=== PATIENT | female | born 1955 | race Caucasian/White ===

== ENCOUNTER 2018-04-12 22:40 | Emergency (ER) | payer OTHER ==
[2018-04-12] MEDS ORDERED: Metoclopramide IV* 5 MG/ML 2 ML VIAL IV ONE (23:40)
[2018-04-12] MEDS ORDERED: NS 0.9% 1000 ML* 1,000 ML IV ONE (23:40)
--- NOTE | 2018-04-13 00:03 | ED ---
Abdominal Pain/Female - HPI Summary HPI Summary: This is scrrufino Becker documenting for attending physician Inna Nguyen M.D. Pt is a 62 y/o female who presents to [facility] c/o abdominal pain for 1.5 weeks. She describes the sensation as bloated, and states the pain is diffuse but worse in her upper abdomen. The pain is non-radiating, 7/10 in severity, and is worse at night. Pt also c/o nausea, but denies any vomiting or diarrhea. Her last BM was today. Pt denies any PMHx of IBS or abdominal surgery. PMHx GERD and Alport syndrome. - History of Current Complaint Chief Complaint: EDAbdPain Stated Complaint: ABD PAIN Time Seen by Provider: 04/12/18 23:35 Hx Obtained From: Patient Onset/Duration: Gradual Onset, Lasting Weeks - 1.5, Still Present Timing: Constant Severity Currently: Moderate Pain Intensity: 7 Pain Scale Used: 0-10 Numeric Location: Diffuse Radiates: No Character: Other: - Bloated Aggravating Factor(s): Nothing Alleviating Factor(s): Nothing Associated Signs and Symptoms: Positive: Nausea. Negative: Vomiting, Diarrhea Allergies/Adverse Reactions: Allergies Allergy/AdvReac Type Severity Reaction Status Date / Time No Known Allergies Allergy Verified 04/12/18 22:45 PMH/Surg Hx/FS Hx/Imm Hx Endocrine/Hematology History: Denies: Hx Diabetes Cardiovascular History: Reports: Hx Angina, Hx Hypercholesterolemia, Hx Hypertension - HCTZ 25MG, RAMIPRIL 5MG DAILY Respiratory History: Denies: Hx Asthma, Hx Chronic Obstructive Pulmonary Disease (COPD) History: Reports: Hx Renal Disease - GLOMERULAR NEPRITIS HX, Other Problems/Disorders - familial glomerulonephritis Sensory History: Reports: Hx Contacts or Glasses Opthamlomology History: Reports: Hx Contacts or Glasses Psychiatric History: Denies: Hx Substance Abuse - Cancer History Cancer Type, Location and Year: tongue CA - Surgical History Surgery Procedure, Year, and Place: tongue CA with removal of lesion Infectious Disease History: No Infectious Disease History: Denies: Traveled Outside the [place] in Last 30 Days - Family History Known Family History: Positive: Cardiac Disease - [place], Hypertension, Renal Disease - glomerulonephritis - Social History Alcohol Use: Rare Substance Use Type: Reports: None Hx Tobacco Use: No Smoking Status (MU): Never Smoked Tobacco Review of Systems Negative: Fever Positive: Abdominal Pain, Nausea. Negative: Vomiting, Diarrhea All Other Systems Reviewed And Are Negative: Yes Physical Exam - Summary Physical Exam Summary: VITAL SIGNS: Reviewed. GENERAL: Patient is a well-developed and nourished FEMALE who is lying comfortable in the stretcher. Patient is not in any acute respiratory distress. HEAD AND FACE: No signs of trauma. No ecchymosis, hematomas or skull depressions. No sinus tenderness. EYES: PERRLA, EOMI x 2, No injected conjunctiva, no nystagmus. EARS: Hearing grossly intact. Ear canals and tympanic membranes are within normal limits. MOUTH: Oropharynx within normal limits. NECK: Supple, trachea is midline, no adenopathy, no JVD, no carotid bruit, no c- spine tenderness, neck with full ROM. CHEST: Symmetric, no tenderness at palpation LUNGS: Clear to auscultation bilaterally. No wheezing or crackles. CVS: Regular rate and rhythm, S1 and S2 present, no murmurs or gallops appreciated. ABDOMEN: Soft. No rebound no guarding, and no masses palpated. Bowel sounds are hyperactive. Distended. Bilateral LQ tenderness. EXTREMITIES: FROM in all major joints, no edema, no cyanosis or clubbing. NEURO: Alert and oriented x 3. No acute neurological deficits. Speech is normal and follows commands. SKIN: Dry and warm Triage Information Reviewed: Yes Vital Signs On Initial Exam: Initial Vitals Temp Pulse Resp BP Pulse Ox 98.0 F 64 16 166/73 100 04/12/18 22:42 04/12/18 22:42 04/12/18 22:42 04/12/18 22:42 04/12/18 22:42 Vital Signs Reviewed: Yes Diagnostics - Vital Signs Vital Signs Temp Pulse Resp BP Pulse Ox 04/12/18 22:42 98.0 F 64 16 166/73 100 - Laboratory Result Diagrams: 04/12/18 23:54 04/12/18 23:54 Lab Statement: Any lab studies that have been ordered have been reviewed, and results considered in the medical decision making process. - CT CT A/P CT Interpretation: Positive (See Comments) - Cholelithiasis with multiple gallstones and probably sludge. Otherwise negative CT abdomen/pelvis. ED physician reviewed radiology report. CT Interpretation Completed By: Radiologist Abdominal Pain Fem Course/Dx - Course Course Of Treatment: Pt is a 62 y/o female who presents to [facility] c/o abdominal pain for 1.5 weeks. She describes the sensation as bloated, and diffuse but worse in her upper abdomen, non-radiating, 7/10 in severity, and is worse at night. Pt also c/o nausea, but denies any vomiting or diarrhea. Her last BM was today. A physical exam revealed Bowel sounds are hyperactive. Distended. Bilateral LQ tenderness. A CT A/P revealed Cholelithiasis with multiple gallstones and probably sludge. Final dx is cholelithiasis. Pt will be discharged home, and is to follow up with surgery. Pt is agreeable with this plan. - Diagnoses Provider Diagnoses: Cholelithiasis Discharge - Sign-Out/Discharge Documenting (check all that apply): Patient Departure - Discharge - Discharge Plan Condition: Stable Disposition: HOME Patient Education Materials: Gallstones (ED) Referrals: Darius Mace MD [Medical Doctor] - (1-2 days) Additional Instructions: Follow up with surgery. RETURN TO THE EMERGENCY DEPARTMENT FOR CHANGING OR WORSENING SYMPTOMS
[2018-04-13 00:11] LABS: ABS Basophils 0 10^3/ul (0-0.2); ABS Eosinophils 0.1 10^3/ul (0-0.6); ABS Lymphocytes 1.9 10^3/ul (1.0-4.8); ABS Monocytes 0.4 10^3/ul (0-0.8); ABS Neutrophils 4.1 10^3/ul (1.5-7.7); ABS Nucleated RBC 0 10^3/ul; Eosinophil % 1.1 % (0-6); Hematocrit 33 % (35-47); Hemoglobin 11.1 g/dl (12.0-16.0); Lymphocyte % 29.6 % (25-47); Mean Corpuscular HGB Conc 33 g/dl (31-36); Mean Corpuscular Hemoglobin 31 pg (27-31); Mean Corpuscular Volume 94 fL (80-97); Mean Platelet Volume 7.4 um3 (7.4-10.4); Nucleated Red Blood Cells % 0; Platelet Count 235 10^3/ul (150-450); Red Blood Count 3.57 10^6/ul (4.00-5.40); Red Cell Distribution Width 13 % (10.5-15); White Blood Count 6.5 10^3/ul (3.5-10.8)
[2018-04-13 00:30] LABS: EGFR Non-African American 44.5 (>60)
[2018-04-13] MEDS ORDERED: Iodixanol* (CONTRAST) 320 MG/ML 100 ML SDV IV ONE (00:38)
[2018-04-13 03:33] VITALS: BP 138/84
--- NOTE | 2018-04-13 08:04 | RAD ---
CLINICAL HISTORY: Abdominal pain, bloating, swelling COMPARISON: September 09, 2006 TECHNIQUE: Multiple contiguous axial CT scans were obtained of the abdomen and pelvis after the administration of intravenous contrast. Coronal and sagittal multiplanar reformations are submitted for review. Oral contrast was not administered. Delayed images were obtained through the abdomen. FINDINGS: LUNG BASES: The lung bases are clear. LIVER: There is a small low-attenuation lesion of the right lobe of liver that can be identified on the 2005 examination in retrospect and is stable, most consistent with a small cyst versus hemangioma. BILE DUCTS: There is no intrahepatic or extrahepatic biliary dilatation. GALLBLADDER: Multiple gallstones are noted. There is no pericholecystic inflammatory change. PANCREAS: The pancreas is normal, without mass or ductal dilatation. SPLEEN: Normal in size and appearance. UPPER GI TRACT: Evaluation of the gastrointestinal tract is limited by incomplete gastric distention. The upper GI tract is unremarkable. SMALL BOWEL AND MESENTERY: The small bowel is normal in contour, course, and caliber. There is no obstruction or dilatation. COLON: The colon is normal in contour, course, caliber. There is no pericolonic inflammatory change. There is large amount of stool within the proximal colon. The appendix is not clearly visualized. There is no inflammatory change within the right upper quadrant. ADRENALS: Normal bilaterally. KIDNEYS: The kidneys are normal in shape, size, contour, and axis. There is no hydronephrosis or nephrolithiasis. BLADDER: The bladder is smooth in contour. PELVIC ORGANS: The uterus and adnexa are grossly normal for technique. AORTA: The aorta is normal. IVC: Unremarkable LYMPH NODES: There is no lymphadenopathy by size criteria. ABDOMINAL WALL: There is no evidence for abdominal wall hernia. BONES AND SOFT TISSUES: Degenerative changes are noted. There is grade 1 anterolisthesis of L4 on L5, and to lesser extent at L5-S1. OTHER: None IMPRESSION: CHOLELITHIASIS. R0
== END 2018-04-13 03:37 | disposition home or self-care (01) ==
LOC: ED 22:40
DX: K80.20 Calculus of gallbladder without cholecystitis without obstruction (principal); R11.0 Nausea; I20.9 Angina pectoris, unspecified; I10 Essential (primary) hypertension; Z85.810 Personal history of malignant neoplasm of tongue; Z82.49 Family history of ischemic heart disease and other diseases of the circulatory system; Z84.1 Family history of disorders of kidney and ureter
CPT/HCPCS: 36415; 74177; 80053; 82150; 83690; 85025; 86140; 96361; 96374; 99283; J2765

== ENCOUNTER 2018-04-28 13:44 | Day surgery (SDC) | payer OTHER ==
--- NOTE | 2018-04-26 12:41 | HP ---
CC: Dr. Jose Javier * ADMISSION HISTORY AND PHYSICAL: DATE OF ADMISSION: 04/28/18 ATTENDING SURGEON: Dr. Mono Huang.* (DICTATED BY EMELINA WAYNE) CHIEF COMPLAINT: Symptomatic cholelithiasis. HISTORY OF PRESENT ILLNESS: This is a 62-year-old female who a little over a month ago began to experience mid epigastric abdominal pain associated with significant bloating and nausea. She had intermittent symptoms about a week prior, then finally presented to the ED on 03/13/18, at which time she underwent workup. She denies fever or chills, association with specific foods or eating, or dark urine. There is no family history of gallbladder disease that she is aware of. Pain would occur in the epigastric region and will eventually spread to the bilateral upper abdomen. At the time of her evaluation , white blood cell count was normal. Hemoglobin was slightly low at 11.1, but consistent with prior CBCs. Liver function tests, amylase and lipase were all normal. BUN and creatinine were mildly elevated, again consistent with previous. CT of the abdomen with IV contrast only did confirm the presence of gallstones, but without pericholecystic inflammatory changes (see full report). The patient was seen in the office by Dr. Huang on 04/15/18. He has reviewed her workup including a subsequent ultrasound of right upper quadrant showing multiple gallstones, but without pericholecystic fluid, gallbladder wall thickening, or ductal dilatation. His impression was that of symptomatic cholelithiasis. He has reviewed with her the indications for surgery, the risks , benefits, and alternatives and she would like to proceed as scheduled with laparoscopic cholecystectomy. 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 PAST SURGICAL HISTORY: Resection of squamous cell cancer of the right tongue ( patient did not require any additional therapy and with no evidence of recurrence). CURRENT MEDICATIONS: 1. Ramipril 5 mg once daily. 2. Hydrochlorothiazide 25 mg once daily. 3. Probiotic once daily. DRUG ALLERGIES: None known. FAMILY HISTORY: Negative for anesthesia problems, bleeding, or clotting disorders. It is positive for Alport's disease. SOCIAL HISTORY: The patient is . 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 She denies use of tobacco, alcohol, or recreational drugs. REVIEW OF SYSTEMS: General: No recent constitutional symptoms or acute illnesses other than described in the HPI. Her weight has been stable. Eyes: No recent changes. Ears, Nose, Throat: No problems reported. Cardiovascular: No chest pain, palpitations. She was treated for hypertension. Respiratory: No history of asthma, chronic cough, or shortness of breath. GI: As above per HPI. She has undergone colonoscopy x2 in the past, most recently about 2 years ago with removal of benign polyps and 5 year followup recommended. No interval problems reported. : Alport's disease, but with mild renal insufficiency that is stable. HIDE SPLITTER: She is up-to-date within the last 2 years for breast exam, pelvic exam, Pap smear, and mammogram, all reportedly normal. Endocrine: No diabetes or thyroid dysfunction. Remaining review of systems is negative. PHYSICAL EXAMINATION GENERAL: Well-nourished, well-developed female, in no acute distress. VITAL SIGNS: Height 62 inches, weight 130 pounds, temperature 97.4, blood pressure 122/70, pulse 72. SKIN: Warm and dry. No suspicious rashes or lesions. HEENT: Pupils equal, round, and reactive. EOMs intact. No conjunctival pallor. Oropharynx, teeth in good repair. Small defect in the right lateral tongue. No other intraoral lesions. Mucous membranes moist. NECK: No lymphadenopathy, thyromegaly, or masses. No supraclavicular lymphadenopathy. LUNGS: Clear to auscultation. No wheezes. HEART: Regular rate and rhythm. No murmur noted. BREAST: Not examined. ABDOMEN: Soft, nontender to palpation. No palpable masses or organomegaly. GENITALIA: Not done. RECTAL: Not done. BACK: No spinous process or CVA tenderness. MUSCULOSKELETAL: Otherwise normal. EXTREMITIES: No edema. NEUROLOGICAL: Grossly intact. IMPRESSION: Symptomatic cholelithiasis. PLAN: Laparoscopic cholecystectomy. EMELINA WAYNE [id number]/[facility] #: [id number] MTDD
[~2018-04-28 13:44] MED LIST: Buffered Lidocaine 0.9% SYRIN* 5 ML/SYR SYRINGE INTRADERM ONE
[2018-04-28] MEDS ORDERED: ceFAZolin 2 GM PREMIX (*) 2 GM/50 ML BAG IVPB ONE (14:18)
[2018-04-28] MEDS ORDERED: Clindamycin 900 MG IVPREMIX(* 900 MG/50 ML SDV IV ONE (14:18)
[2018-04-28] MEDS ORDERED: Midazolam* 1 MG/ML 2 ML VIAL (2 MG) ONE (14:29)
[2018-04-28] MEDS ORDERED: fentaNYL* 50 MCG/ML 2 ML VIAL (100 MCG VIAL) ONE ×2 (14:29→17:25)
[2018-04-28] MEDS ORDERED: Ketorolac INJ* 30 MG/ML 1 ML VIAL ONE (14:56)
[2018-04-28] MEDS ORDERED: Ondansetron INJ* 2 MG/ML VIAL ONE (14:56)
[2018-04-28] MEDS ORDERED: Bupivacaine 0.25% W/EPI* 10 ML SDV ONE (15:19)
[2018-04-28] MEDS ORDERED: Famotidine IV* 10 MG/ML 2 ML (20 mg) ONE (15:31)
[2018-04-28] MEDS ORDERED: EPHEDrine (Pressors)* 50 MG/ML VIAL ONE (16:16)
[2018-04-28] MEDS ORDERED: Mivacurium Chloride* 20 MG/10 ML VIAL IV ONE (16:16)
[2018-04-28] MEDS ORDERED: Lidocaine 2% PF * 5 ML VIAL ONE (16:16)
[2018-04-28] MEDS ORDERED: Propofol* 10 MG/ML 20 ML BTL IV PUSH ONE (16:16)
[2018-04-28] MEDS ORDERED: Dexamethasone IV* 4 MG/ML 1 ML (4 MG) ONE (16:16)
[2018-04-28] MEDS ORDERED: Acetaminophen TAB* 325 MG PO PRN (16:26)
[2018-04-28] MEDS ORDERED: PROCHLORPERAZINE INJ 5 MG/ML 2 ML VIAL IV PRN (16:26)
[2018-04-28] MEDS ORDERED: DiMENhydriNATE IV* 50 MG/ML VIAL IV PUSH PRN (16:26)
[2018-04-28] MEDS ORDERED: Ondansetron INJ* 2 MG/ML VIAL IV PRN (16:26)
[2018-04-28] MEDS ORDERED: HYDROcodone/ACETAMIN 5-325 MG* 1 TAB PO PRN ×2 (16:26)
[2018-04-28] MEDS ORDERED: Naloxone* 0.4 MG/ML 1 ML VIAL IV PRN (16:26)
--- NOTE | 2018-04-28 17:05 | OP ---
Operative Report - Blank - Operative Report Date of Operation: 04/28/18 Note: Brief Operative Note Preop Dx: symptomatic cholelithiasis Postop Dx: same Procedure: laparoscopic cholecystectomy Anesthesia: GET Surgeon: Sal Deck Mechanic: EMELINA Alegria Fluids: 800 ml (in OR) EBL: < 50 ml Specimen: gallbladder Drains: none Findings: dictated
[2018-04-28] MEDS ORDERED: HYDROmorphone INJ* 0.5 MG/0.5 ML SYRINGE ONE (17:26)
[2018-04-28] MEDS: fentaNYL* 50 MCG/ML 2 ML VIAL (100 MCG VIAL) IV PRN ×2 (17:27→17:39)
[2018-04-28] MEDS: HYDROmorphone INJ* 0.5 MG/0.5 ML SYRINGE IV PRN ×2 (17:28→17:40)
[2018-04-28] MEDS ORDERED: DiMENhydriNATE IV* 50 MG/ML VIAL ONE (18:42)
[2018-04-28 18:58] VITALS: BP 115/68
--- NOTE | 2018-04-29 23:03 | OP ---
CC: Dr. Jose Javier; [facility] DATE OF OPERATION: 04/28/18 - [facility] DATE OF : 59 SURGEON: Mono Huang MD CAR DUMPER OPERATOR HELPER: EMELINA Mcclellan ANESTHESIOLOGIST: Dr. Saleh. ANESTHESIA: General. PRE-OP DIAGNOSIS: Chronic cholecystitis. POST-OP DIAGNOSIS: Chronic cholecystitis. OPERATIVE PROCEDURE: Laparoscopic cholecystectomy. ESTIMATED BLOOD LOSS: Minimal blood loss. IV FLUIDS: Minimal crystalloid fluid given. SPECIMENS: Gallbladder and contents. DRAINS: None. DESCRIPTION OF PROCEDURE: The patient was identified in the preoperative area, consent signed. She was marked, brought to the operative room, placed on the operating table in a supine position. Preoperative antibiotics were given. Sequential devices were placed on bilateral lower extremities and general anesthesia was induced. The patient's abdomen was prepped and draped in the standard surgical fashion and a time-out was performed. The folds of the umbilicus were elevated anteriorly and a Veress needle was inserted into the abdominal cavity, which was then allowed to insufflate to a pressure of 15 mmHg. The patient tolerated the insufflation well. An incision was made from the Veress needle, which was removed and a 5 mm trocar inserted at this site. Laparoscope was inserted and there was no evidence of injury. Additional trocars were then placed in the following positions, a 12 mm in the subxiphoid area and two 5 mm along the right costal margin. The gallbladder was identified, this was elongated on the large mesentery. It was grasped and retracted over the liver. The table was repositioned with head up and right side up. The infundibular region of the gallbladder was then retracted towards the right lower quadrant. This exposed the Calot's triangle nicely along with close node, which was dissected off and pushed posteriorly. We continued taking the peritoneum off the medial aspect of the gallbladder and then the lateral aspect. Cystic artery was isolated, cystic duct was isolated, and a posterior artery was also isolated. The cystic duct was triply clipped and ligated. Cystic artery was doubly clipped and ligated and posterior artery was clipped and cauterized. We then removed the gallbladder from the liver bed and placed an endoscopic retrieval bag. Review of cystic duct stump, cystic artery stump showed no bile or no bleeding. The table was repositioned back to neutral. Next, we took the gallbladder out from the subxiphoid incision site with the endoscopic retrieval bag. We had to open up the gallbladder, remove multiple stones, and the sludge till we can get the specimen out in its entirety. Irrigated the wound and reapproximated the fascia at the site with 0 Polysorb suture, and after the abdomen collapsed, trocar was removed under direct vision , all 4 incisions were reapproximated with 4-0 Monocryl subcuticular sutures followed by Steri-Strips and sterile dressings. The patient tolerated the procedure well, was transferred back in stable condition. [id number]/[facility] #: [id number] [facility]
== END 2018-04-28 19:23 | disposition home or self-care (01) ==
LOC: OR 13:44
PROVIDERS: ATTEND Surgery
DX: K80.10 Calculus of gallbladder with chronic cholecystitis without obstruction (principal); Z85.810 Personal history of malignant neoplasm of tongue; I10 Essential (primary) hypertension
CPT/HCPCS: 88304; J0690; J1100; J1170; J1240; J1885; J2250; J2405; J2704; J3010